=== PATIENT | male | born 1945 | race Hispanic/Latino ===

== ENCOUNTER → 2018-04-03 | Outpatient (CLI) | payer OTHER ==
[~2018-04-03] MED LIST: AMIO100T4 PO; ASPI-555 PO; GLIM1TAB2 PO; LISI-613 PO; METO-391 PO; RANO500T3 PO; ROSU10TA PO; TAMS0.4C32 PO; WARF2TAB9 PO
== END | disposition home or self-care (01) ==
LOC: SHCH 13:54
PROVIDERS: ATTEND Internal Medicine Cardiovascular Disease
DX: I25.10 Atherosclerotic heart disease of native coronary artery without angina pectoris (principal)
CPT/HCPCS: 93306

== ENCOUNTER → 2018-04-09 | Outpatient (CLI) | payer OTHER | END | disposition home or self-care (01) | LOC: SHCH 13:31 | PROVIDERS: ATTEND Internal Medicine Cardiovascular Disease | DX: I65.23 Occlusion and stenosis of bilateral carotid arteries (principal); I25.10 Atherosclerotic heart disease of native coronary artery without angina pectoris; I73.9 Peripheral vascular disease, unspecified; Z72.89 Other problems related to lifestyle | CPT/HCPCS: 93880; 93925 ==

== ENCOUNTER → 2019-04-09 | Outpatient (CLI) | payer OTHER ==
[~2019-04-09] MED LIST changes: -GLIM1TAB2 PO; +GLIM1TAB3 PO; -ROSU10TA PO; +ROSU10TA22 PO
== END | disposition home or self-care (01) ==
LOC: SHCH 12:47
PROVIDERS: ATTEND Internal Medicine Cardiovascular Disease
DX: I65.23 Occlusion and stenosis of bilateral carotid arteries (principal)
CPT/HCPCS: 93880

== ENCOUNTER → 2019-11-25 | Outpatient (CLI) | payer OTHER ==
[~2019-11-25] MED LIST changes: +GLIM1TAB18 PO; -GLIM1TAB3 PO
== END | disposition home or self-care (01) ==
LOC: SHCH 07:58
PROVIDERS: ATTEND Internal Medicine Cardiovascular Disease
DX: I25.10 Atherosclerotic heart disease of native coronary artery without angina pectoris (principal); I10 Essential (primary) hypertension
CPT/HCPCS: 93306; 93356; 93880

== ENCOUNTER → 2021-10-31 | Outpatient (CLI) | payer OTHER ==
[~2021-10-31] MED LIST changes: -ASPI-555 PO; +ASPI-556 PO; -LISI-613 PO; +LISI20TA24 PO
== END ==
LOC: SHCH 10:27
PROVIDERS: ATTEND Internal Medicine Cardiovascular Disease
DX: I48.0 Paroxysmal atrial fibrillation (principal); I10 Essential (primary) hypertension; I70.293 Other atherosclerosis of native arteries of extremities, bilateral legs; I65.23 Occlusion and stenosis of bilateral carotid arteries
CPT/HCPCS: 93880; 93925

== ENCOUNTER → 2021-11-02 | Outpatient (CLI) | payer OTHER | END | disposition home or self-care (01) | LOC: RAH 15:06 | PROVIDERS: ATTEND Internal Medicine Cardiovascular Disease | DX: I08.0 Rheumatic disorders of both mitral and aortic valves (principal); I48.0 Paroxysmal atrial fibrillation; I11.9 Hypertensive heart disease without heart failure; E78.5 Hyperlipidemia, unspecified; Z95.1 Presence of aortocoronary bypass graft | CPT/HCPCS: 93306 ==

== ENCOUNTER → 2021-12-08 | Outpatient (CLI) | payer OTHER ==
[~2021-12-08] MED LIST changes: +REGADENOSON 0.4 MG/5 ML PF SYG IVP SCH
== END | disposition home or self-care (01) ==
LOC: SHCH 08:27
PROVIDERS: ATTEND Internal Medicine Cardiovascular Disease
DX: I65.21 Occlusion and stenosis of right carotid artery (principal); I10 Essential (primary) hypertension
CPT/HCPCS: 78452; 93017; 96374; A9500 ×2; J2785

== ENCOUNTER → 2022-01-31 | Outpatient (CLI) | payer OTHER ==
[~2022-01-31] VITALS: Ht 175.3 cm; Wt 71.5 kg
[~2022-01-31] MED LIST changes: +0.9% NACL 500ML IV.SOLN 500 ML IV SCH; +DONE5TAB33 PO; +GLIM4TAB36 PO; +METO25TA6 PO; -REGADENOSON 0.4 MG/5 ML PF SYG IVP SCH; +SITA50TA PO
[2022-01-31 09:57] LABS: BASOPHILS % (AUTO) 0.5 % (0.0-5.0); EOSINOPHILS % (AUTO) 1.4 % (0.0-8.0); HEMATOCRIT 38.5 % (42-54); LYMPHOCYTES % (AUTO) 24.2 % (21.0-51.0); MEAN CORPUSCULAR HEMOGLOBIN 27.6 pg (27.0-33.0); MEAN CORPUSCULAR HGB CONC 30.9 g/dL (32.0-36.0); MEAN CORPUSCULAR VOLUME 89.3 fL (79-99); MONOCYTES % (AUTO) 8.9 % (3.0-13.0); NEUTROPHILS % (AUTO) 64.7 % (40.0-77.0); PLATELET COUNT (AUTO) 179 K/uL (130-400); RED BLOOD CELL COUNT(AUTO) 4.31 MIL/uL (4.50-6.20); RED CELL DISTRIBUTION WIDTH 15.6 % (11.0-15.5); WHITE BLOOD COUNT (AUTO) 5.7 K/uL (4.8-10.8)
[2022-01-31 10:16] LABS: INR 0.97 (0.85-1.15); PROTHROMBIN TIME 10.6 SEC (9.6-11.6)
[2022-01-31 10:17] LABS: PARTIAL THROMBOPLASTIN TIME 24.5 SEC (26.3-35.5)
[2022-01-31 10:21] LABS: CREATININE 2.2 mg/dL (0.5-1.5); POTASSIUM 5.2 mmol/L (3.5-5.1)
[2022-01-31 10:23] LABS: APPEARANCE,URINE Clear (CLEAR); BILIRUBIN,URINE Negative (NEGATIVE); COLOR,URINE Yellow (YELLOW); GLUCOSE, URINE (UA) Negative (NEGATIVE); KETONES,URINE Trace mg/dL (NEGATIVE); LEUKOCYTE ESTERASE ,URINE Trace (NEGATIVE); NITRATE,URINE Negative (NEGATIVE); OCCULT BLOOD,URINE Negative (NEGATIVE); PH,URINE 5.5 (5.0-8.0); PROTEIN,URINE POS 1+ mg/dL (NEGATIVE)
[2022-01-31 10:37] LABS: B-TYPE NATRIURETIC PEPTIDE 1400 pg/mL (0-100)
[2022-01-31 10:43] LABS: BACTERIA,URINE Rare /HPF (None Seen); RBC,URINE 0-1 /HPF (0-1); SQUAMOUS EPITHELIAL CELL,UR Rare /HPF (0-2); WBC,URINE 0-1 /HPF (0-1)
[2022-02-02 09:37] VITALS: BP 210/62
== END | disposition home or self-care (01) ==
LOC: EDSTATUS 08:00 → DAH 08:51
PROVIDERS: ATTEND Internal Medicine Cardiovascular Disease
DX: Z01.818 Encounter for other preprocedural examination (principal); I25.10 Atherosclerotic heart disease of native coronary artery without angina pectoris; Z79.01 Long term (current) use of anticoagulants
CPT/HCPCS: 36415; 71045; 80048; 81001; 83880; 85025; 85610; 85730; 93005

== ENCOUNTER → 2024-02-17 | Outpatient (CLI) | payer OTHER ==
[~2024-02-17] MED LIST changes: -0.9% NACL 500ML IV.SOLN 500 ML IV SCH; +AEC81 PO; -AMIO100T4 PO; +AMLO-257 PO; -ASPI-556 PO; +CHOL100046 PO; +CLOP75TA32 PO; +FERR-72 PO; +FOLI0.8T43 PO; -GLIM1TAB18 PO; -GLIM4TAB36 PO; -LISI20TA24 PO; -METO-391 PO; -METO25TA6 PO; +METO50TA18 PO; -RANO500T3 PO; -ROSU10TA22 PO; +ROSU5TAB43 PO; +SODI650T PO; -TAMS0.4C32 PO; -WARF2TAB9 PO
[2024-02-17 12:33] LABS: ALBUMIN 4.1 g/dL (3.5-5.0); BILIRUBIN,TOTAL 0.5 mg/dL (0.2-1.0); CREATININE 2.7 mg/dL (0.5-1.3); MAGNESIUM 1.7 mg/dL (1.80-2.40); POTASSIUM 4.1 mmol/L (3.5-5.1); TOTAL PROTEIN, SERUM 7.7 g/dL (6.0-8.3)
== END | disposition home or self-care (01) ==
LOC: LAB 10:07
PROVIDERS: ATTEND Internal Medicine Cardiovascular Disease
DX: I10 Essential (primary) hypertension (principal); E78.5 Hyperlipidemia, unspecified
CPT/HCPCS: 36415; 80053; 83735; 83880

== ENCOUNTER → 2024-03-03 | Outpatient (CLI) | payer OTHER ==
[2024-03-03 12:13] LABS: ALBUMIN 4.1 g/dL (3.5-5.0); BILIRUBIN,TOTAL 0.6 mg/dL (0.2-1.0); POTASSIUM 4.3 mmol/L (3.5-5.1); TOTAL PROTEIN, SERUM 7.4 g/dL (6.0-8.3)
== END | disposition home or self-care (01) ==
LOC: LAB 10:17
PROVIDERS: ATTEND Internal Medicine Cardiovascular Disease
DX: I10 Essential (primary) hypertension (principal); E78.2 Mixed hyperlipidemia
CPT/HCPCS: 36415; 80053

== ENCOUNTER 2024-04-21 16:44 | Inpatient (IN) | payer OTHER ==
[~2024-04-21] VITALS: Ht 177.8 cm; Wt 79.0 kg
[2024-04-21 18:02] LABS: BASOPHILS # (AUTO) 0.04 K/uL (0.00-0.20); BASOPHILS % (AUTO) 0.6 % (0.0-5.0); EOSINOPHILS # (AUTO) 0.03 K/uL (0.00-0.70); EOSINOPHILS % (AUTO) 0.5 % (0.0-8.0); HEMATOCRIT 36.3 % (42-54); IMMATURE GRANULOCYTE ABSOLUTE 0.02 K/uL (0-1); LYMPHOCYTES # (AUTO) 1.5 K/uL (1.0-4.8); LYMPHOCYTES % (AUTO) 22.7 % (21.0-51.0); MEAN CORPUSCULAR HEMOGLOBIN 30.7 pg (27.0-33.0); MEAN CORPUSCULAR HGB CONC 32.8 g/dL (32.0-36.0); MEAN CORPUSCULAR VOLUME 93.6 fL (79-99); MONOCYTES # (AUTO) 0.5 K/uL (0.1-1.0); MONOCYTES % (AUTO) 8.2 % (3.0-13.0); NEUTROPHILS # (AUTO) 4.5 K/uL (1.8-7.7); NEUTROPHILS % (AUTO) 67.7 % (40.0-77.0); PLATELET COUNT (AUTO) 222 K/uL (130-400); RED BLOOD CELL COUNT(AUTO) 3.88 MIL/uL (4.50-6.20); RED CELL DISTRIBUTION WIDTH 13.8 % (11.0-15.5); WHITE BLOOD COUNT (AUTO) 6.6 K/uL (4.8-10.8)
[2024-04-21 18:30] LABS: CREATININE 2.5 mg/dL (0.5-1.3)
[2024-04-21] MEDS: ondanSETRON 4MG INJ IVP ONE (19:08)
[2024-04-21] MEDS: morPHINE 2 MG SYG IVP ONE (19:08)
[2024-04-21] MEDS: LAbetaLOL 20MG SYG IV ONE (19:17)
[2024-04-21 19:21] LABS: ERYTHROCYTE SEDIMENTATION RATE 19 MM/HR (0-20)
[2024-04-21] MEDS ORDERED: VANCOMYCIN PROTOCOL PER PHARMACY IV SCH (21:00)
[2024-04-21] MEDS ORDERED: ALBUTEROL 0.083% 2.5 MG/3 ML INH IH PRN (21:00)
[2024-04-21] MEDS ORDERED: acetaMINOPHEN 325 MG TAB PO PRN (21:00)
[2024-04-21] MEDS: INSULIN humuLIN R 100 UNIT/ML 3ML SQ SCH (21:00)
[2024-04-21] MEDS ORDERED: ondanSETRON 4MG INJ IVP PRN (21:00)
[2024-04-21] MEDS ORDERED: acetaMINOPHEN 650 MG SUPPOSITORY RC PRN (21:00)
[2024-04-21] MEDS: ceFEPime HCL 1 GM VIAL IVPB SCH (21:17)
[2024-04-21] MEDS: LAbetaLOL 20MG SYG IV PRN (21:18)
[2024-04-21] MEDS: ZOSYN 3.375GM +NS 50ML IV SCH (21:38)
[2024-04-21] MEDS: VANCOMYCIN 1.5 GM/250 ML BAG 250 ML IV ONE (22:03)
[2024-04-21 23:10] VITALS: BP 194/47; PULSE 83; RESP 18; TEMP 97.7; O2SAT 100
[2024-04-22] VITALS (10 sets, daily range): BP systolic 142–188; BP diastolic 35–140; PULSE 62–85; RESP 17–20; TEMP 97.7–98.9; O2SAT 97–99
[2024-04-22] MEDS ORDERED: CILO100T3 PO (02:04)
[2024-04-22 05:11] LABS: BASOPHILS # (AUTO) 0.04 K/uL (0.00-0.20); BASOPHILS % (AUTO) 0.6 % (0.0-5.0); EOSINOPHILS # (AUTO) 0.04 K/uL (0.00-0.70); EOSINOPHILS % (AUTO) 0.6 % (0.0-8.0); HEMATOCRIT 33.2 % (42-54); IMMATURE GRANULOCYTE ABSOLUTE 0.02 K/uL (0-1); LYMPHOCYTES # (AUTO) 1.9 K/uL (1.0-4.8); LYMPHOCYTES % (AUTO) 29.5 % (21.0-51.0); MEAN CORPUSCULAR HEMOGLOBIN 30.7 pg (27.0-33.0); MEAN CORPUSCULAR HGB CONC 32.2 g/dL (32.0-36.0); MEAN CORPUSCULAR VOLUME 95.4 fL (79-99); MONOCYTES # (AUTO) 0.7 K/uL (0.1-1.0); NEUTROPHILS # (AUTO) 3.7 K/uL (1.8-7.7); PLATELET COUNT (AUTO) 177 K/uL (130-400); RED BLOOD CELL COUNT(AUTO) 3.48 MIL/uL (4.50-6.20); RED CELL DISTRIBUTION WIDTH 13.6 % (11.0-15.5); WHITE BLOOD COUNT (AUTO) 6.4 K/uL (4.8-10.8)
[2024-04-22 05:25] LABS: CREATININE 2.3 mg/dL (0.5-1.3); MAGNESIUM 1.7 mg/dL (1.80-2.40); PHOSPHORUS 3.8 mg/dL (2.5-4.9); POTASSIUM 3.3 mmol/L (3.5-5.1)
[2024-04-22] MEDS: PANTOPrazole 40 MG TAB DR PO SCH (10:25)
[2024-04-22] MEDS: ENOXAPARIN SODIUM 30 MG/0.3 ML SQ SCH (10:26)
[2024-04-22] MEDS: LINEZOLID 600 MG/ISO-OSM 300 ML IV SCH (15:45)
[2024-04-22] MEDS: PoTASSium chloRIDE 20MEQ ER 20 MEQ ERTAB PO ONE (18:32)
[2024-04-22] MEDS: MAGNESIUM 2GM PREMIX 50ML 50 ML IV ONE (18:32)
[2024-04-22] MEDS: SODIUM BICARBONATE 650 MG TAB PO SCH (19:44)
[2024-04-22] MEDS: metoPROLOL tartRATE 50 MG TAB PO SCH (19:44)
[2024-04-22] MEDS: atorVAStatin 20 MG TABLET PO SCH (19:44)
[2024-04-22] MEDS: CILOstazol 100 MG TAB PO SCH (19:44)
[2024-04-22] MEDS: HYDROcodone/APAP 5/325 1 TAB TABLET PO PRN (19:45)
[2024-04-22] MEDS ORDERED: VANCOMYCIN 750MG VIAL IVPB SCH (21:30)
[2024-04-22] MEDS: ceFEPime HCL 1 GM VIAL IVPB SCH (21:35)
[2024-04-23] VITALS (16 sets, daily range): BP systolic 116–206; BP diastolic 33–78; PULSE 64–98; RESP 16–20; TEMP 97.7–98.9; O2SAT 97–99
[2024-04-23 04:35] LABS: HEMATOCRIT 34.4 % (42-54); MEAN CORPUSCULAR HEMOGLOBIN 30.5 pg (27.0-33.0); MEAN CORPUSCULAR HGB CONC 31.7 g/dL (32.0-36.0); MEAN CORPUSCULAR VOLUME 96.4 fL (79-99); RED BLOOD CELL COUNT(AUTO) 3.57 MIL/uL (4.50-6.20); RED CELL DISTRIBUTION WIDTH 13.7 % (11.0-15.5); WHITE BLOOD COUNT (AUTO) 7.2 K/uL (4.8-10.8)
[2024-04-23 05:01] LABS: CREATININE 2.2 mg/dL (0.5-1.3); POTASSIUM 4.2 mmol/L (3.5-5.1)
[2024-04-23] MEDS: ASPIRIN 81 MG EC TAB PO SCH (07:32)
[2024-04-23] MEDS: cloPIDOgrel 75MG TAB PO SCH (07:33)
[2024-04-23] MEDS: FERROUS SULFATE 325 MG TABLET.DR PO SCH (09:00)
[2024-04-23] MEDS: Cholecalciferol (Vitamin D3) 25 MCG PO SCH (09:00)
[2024-04-23] MEDS: Vitamin B Complex/Vit C/Folic Acid PO SCH (09:00)
[2024-04-23] MEDS: doNEPEZil HCL 5 MG TAB PO SCH (09:00)
[2024-04-23] MEDS ORDERED: HEParin-NS 1,000 UNIT/500 ML 1,000 ML IV ONE (10:23)
[2024-04-23] MEDS ORDERED: IODIXANOL 320 MG/ML 100 ML VIAL ONE (10:23)
[2024-04-23] MEDS ORDERED: NITROGLYCERIN 50MG VIAL ONE ×2 (10:23→12:02)
[2024-04-23] MEDS ORDERED: HEParin 10,000 UNIT/10ML (1,000 UNIT/ML) VIAL ONE ×2 (10:23→12:24)
[2024-04-23] MEDS ORDERED: LIDOCAINE HCL 400MG/20ML VIAL ONE (10:23)
[2024-04-23] MEDS ORDERED: MIDAZOLAM HCL 1 MG/ML 2ML VIAL ONE ×2 (10:44→12:09)
[2024-04-23] MEDS ORDERED: FENTanyl CITRate PF 50 MCG/1 ML 2ML VIAL ONE (10:44)
[2024-04-23] MEDS ORDERED: niCARDIpine 25MG INJ IV ONE (12:03)
[2024-04-23] MEDS ORDERED: HEParin-NS 1,000 UNIT/500 ML 500 ML IV ONE (12:05)
[2024-04-23] MEDS ORDERED: LAbetaLOL 20MG SYG IV ONE ×2 (13:39→13:55)
[2024-04-23] MEDS ORDERED: cloNIDine HCL 0.1 MG TABLET PO PRN (15:00)
[2024-04-23] MEDS: hydrALAZine 20MG/ML VIAL ONE (15:02)
[2024-04-23] MEDS: hydrALAZine 20MG/ML VIAL IV ONE (15:05)
[2024-04-23] MEDS: 0.9%NACL 1000ML 1,000 ML IV SCH (15:34)
[2024-04-23] MEDS: hydrALAZine 25MG TABLET PO SCH (22:12)
[2024-04-24] VITALS (9 sets, daily range): BP systolic 113–153; BP diastolic 36–81; PULSE 82–93; RESP 17–20; TEMP 97.7–98.5; O2SAT 97–98
[2024-04-24 05:05] LABS: HEMATOCRIT 30.3 % (42-54); MEAN CORPUSCULAR HEMOGLOBIN 30.7 pg (27.0-33.0); MEAN CORPUSCULAR HGB CONC 32.7 g/dL (32.0-36.0); MEAN CORPUSCULAR VOLUME 94.1 fL (79-99); RED BLOOD CELL COUNT(AUTO) 3.22 MIL/uL (4.50-6.20); RED CELL DISTRIBUTION WIDTH 13.8 % (11.0-15.5); WHITE BLOOD COUNT (AUTO) 7.4 K/uL (4.8-10.8)
[2024-04-24 05:14] LABS: CREATININE 2.5 mg/dL (0.5-1.3); POTASSIUM 3.9 mmol/L (3.5-5.1)
[2024-04-24] MEDS: 0.9%NACL 1000ML 1,000 ML IV SCH (08:00)
[2024-04-24] MEDS: ASPIRIN 81MG CHEW TAB PO SCH (09:05)
[2024-04-24] MEDS: cloPIDOgrel 75MG TAB PO SCH (09:10)
[2024-04-24 12:45] LABS: ADD UA MICROSCOPIC YES
[2024-04-24 12:46] LABS: APPEARANCE,URINE CLEAR (CLEAR); BACTERIA,URINE RARE /HPF (None Seen); BILIRUBIN,URINE NEGATIVE (NEGATIVE); COLOR,URINE YELLOW (YELLOW); GLUCOSE, URINE (UA) 70 mg/dL (NEGATIVE); KETONES,URINE 10 mg/dL (NEGATIVE); LEUKOCYTE ESTERASE ,URINE NEGATIVE Leu/uL (NEGATIVE); MUCUS,URINE RARE LPF (None Seen); NITRATE,URINE NEGATIVE (NEGATIVE); PH,URINE 5.5 (5.0-8.0); PROTEIN,URINE 50 mg/dL (NEGATIVE); SQUAMOUS EPITHELIAL CELL,UR RARE /HPF (0-2); UROBILINOGEN,URINE 0.2 mg/dL (0.2-1.0)
[2024-04-25] VITALS (10 sets, daily range): BP systolic 108–170; BP diastolic 40–54; PULSE 79–94; RESP 18–20; TEMP 97.7–98.2; O2SAT 95–98
[2024-04-25 04:52] LABS: HEMATOCRIT 28.3 % (42-54); MEAN CORPUSCULAR HEMOGLOBIN 30.9 pg (27.0-33.0); MEAN CORPUSCULAR HGB CONC 32.9 g/dL (32.0-36.0); RED BLOOD CELL COUNT(AUTO) 3.01 MIL/uL (4.50-6.20); RED CELL DISTRIBUTION WIDTH 14.3 % (11.0-15.5); WHITE BLOOD COUNT (AUTO) 8.4 K/uL (4.8-10.8)
[2024-04-25 05:38] LABS: BILIRUBIN,TOTAL 0.6 mg/dL (0.2-1.0); PHOSPHORUS 2.6 mg/dL (2.5-4.9); POTASSIUM 3.7 mmol/L (3.5-5.1); URIC ACID 7.9 mg/dL (2.6-7.2)
[2024-04-25 05:40] LABS: % IRON SATURATION 13.9 % (30-44)
[2024-04-25] MEDS: Vitamin B Complex/Vit C/Folic Acid PO SCH (09:00)
[2024-04-25] MEDS: SOD FERRIC GLUC COMPLEX/SUC 125 MG in 0.9%NACL 100ML 100 ML IV SCH (12:35)
[2024-04-25] MEDS: EPOETIN ALFA-EPBX (NON-ESRD) 10,000 UNIT/ML VIAL SQ ONE (12:41)
[2024-04-26] VITALS (9 sets, daily range): BP systolic 137–150; BP diastolic 43–57; PULSE 78–91; RESP 18–19; TEMP 97.8–98.3; O2SAT 96–97
[2024-04-26 04:04] LABS: HEMATOCRIT 27.9 % (42-54); MEAN CORPUSCULAR HEMOGLOBIN 31.5 pg (27.0-33.0); MEAN CORPUSCULAR HGB CONC 33.3 g/dL (32.0-36.0); MEAN CORPUSCULAR VOLUME 94.6 fL (79-99); RED BLOOD CELL COUNT(AUTO) 2.95 MIL/uL (4.50-6.20); RED CELL DISTRIBUTION WIDTH 14.3 % (11.0-15.5); WHITE BLOOD COUNT (AUTO) 6.5 K/uL (4.8-10.8)
[2024-04-26 04:25] LABS: BILIRUBIN,TOTAL 0.5 mg/dL (0.2-1.0); MAGNESIUM 1.9 mg/dL (1.80-2.40); POTASSIUM 3.2 mmol/L (3.5-5.1); TOTAL PROTEIN, SERUM 6.1 g/dL (6.0-8.3)
[2024-04-26] MEDS: 0.9%NACL 1000ML 1,000 ML IV SCH ×2 (11:47→19:50)
[2024-04-27] VITALS (8 sets, daily range): BP systolic 99–142; BP diastolic 40–91; PULSE 56–116; RESP 16–18; TEMP 98.1–99.2; O2SAT 96
[2024-04-27 04:01] LABS: HEMATOCRIT 27.4 % (42-54); MEAN CORPUSCULAR HEMOGLOBIN 30.9 pg (27.0-33.0); MEAN CORPUSCULAR HGB CONC 32.8 g/dL (32.0-36.0); MEAN CORPUSCULAR VOLUME 94.2 fL (79-99); RED BLOOD CELL COUNT(AUTO) 2.91 MIL/uL (4.50-6.20); RED CELL DISTRIBUTION WIDTH 14.1 % (11.0-15.5); WHITE BLOOD COUNT (AUTO) 8.9 K/uL (4.8-10.8)
[2024-04-27 04:10] LABS: CREATININE 2.7 mg/dL (0.5-1.3); MAGNESIUM 1.7 mg/dL (1.80-2.40); POTASSIUM 3.6 mmol/L (3.5-5.1)
[2024-04-27] MEDS ORDERED: COMPOUND IV MISC 1 EACH IVSOLN MISC PRN (08:30)
[2024-04-27] MEDS: HONEY 1 APPL/ML TUBE TP SCH (09:53)
[2024-04-27] MEDS: MAGNESIUM 2GM PREMIX 50ML 50 ML IV PRN (18:43)
[2024-04-28 03:52] VITALS: BP 147/73; PULSE 104; RESP 18; TEMP 99.4
[2024-04-28 04:00] LABS: HEMATOCRIT 30.2 % (42-54); MEAN CORPUSCULAR HEMOGLOBIN 30.7 pg (27.0-33.0); MEAN CORPUSCULAR HGB CONC 32.8 g/dL (32.0-36.0); MEAN CORPUSCULAR VOLUME 93.8 fL (79-99); RED BLOOD CELL COUNT(AUTO) 3.22 MIL/uL (4.50-6.20); RED CELL DISTRIBUTION WIDTH 14.5 % (11.0-15.5); WHITE BLOOD COUNT (AUTO) 13.3 K/uL (4.8-10.8)
[2024-04-28 04:07] LABS: CREATININE 2.9 mg/dL (0.5-1.3); MAGNESIUM 2.1 mg/dL (1.80-2.40)
[2024-04-28 07:20] VITALS: BP 167/55; PULSE 102; RESP 18; TEMP 97.8
[2024-04-28 08:45] VITALS: O2SAT 92
[2024-04-28] MEDS ORDERED: ATOR20TA65 PO (11:35)
[2024-04-28 11:59] VITALS: BP 113/67; PULSE 98; RESP 20; TEMP 98.6
== END 2024-04-28 13:43 | DRG 271 ==
LOC: EDH 16:44 → OBSVTOIN 20:57 → EDHIP 20:57 → 4AH 21:39
PROVIDERS: ADMIT Internal Medicine Critical Care Medicine; ATTEND Internal Medicine Critical Care Medicine
PROC: 04CP3ZZ Extirpation of Matter from Right Anterior Tibial Artery, Percutaneous Approach (ICD-10-PCS; principal; 2024-04-23)
PROC: 047 Lower Arteries, Dilation (ICD-10-PCS; 2024-04-23)
PROC: B41F1ZZ Fluoroscopy of Right Lower Extremity Arteries using Low Osmolar Contrast (ICD-10-PCS; 2024-04-23)
PROC: 047N3ZZ Dilation of Left Popliteal Artery, Percutaneous Approach (ICD-10-PCS; 2024-04-23)
DX: E11.52 Type 2 diabetes mellitus with diabetic peripheral angiopathy with gangrene (principal); I13.0 Hypertensive heart and chronic kidney disease with heart failure and stage 1 through stage 4 chronic kidney disease, or unspecified chronic kidney disease; L03.115 Cellulitis of right lower limb; M86.171 Other acute osteomyelitis, right ankle and foot; I50.42 Chronic combined systolic (congestive) and diastolic (congestive) heart failure; I16.1 Hypertensive emergency; M86.671 Other chronic osteomyelitis, right ankle and foot; J98.11 Atelectasis; N18.4 Chronic kidney disease, stage 4 (severe); N17.9 Acute kidney failure, unspecified; E11.69 Type 2 diabetes mellitus with other specified complication; E11.22 Type 2 diabetes mellitus with diabetic chronic kidney disease; E11.621 Type 2 diabetes mellitus with foot ulcer; I25.10 Atherosclerotic heart disease of native coronary artery without angina pectoris; L97.519 Non-pressure chronic ulcer of other part of right foot with unspecified severity; D64.9 Anemia, unspecified; I25.5 Ischemic cardiomyopathy; E11.65 Type 2 diabetes mellitus with hyperglycemia; E78.00 Pure hypercholesterolemia, unspecified; I48.0 Paroxysmal atrial fibrillation; I65.21 Occlusion and stenosis of right carotid artery; Z79.02 Long term (current) use of antithrombotics/antiplatelets; Z79.82 Long term (current) use of aspirin; Z95.1 Presence of aortocoronary bypass graft; Z87.891 Personal history of nicotine dependence; Z79.899 Other long term (current) drug therapy
CPT/HCPCS: 36415; 37231; 71045; 73620; 73718; 75710; 76770; 80048; 80053; 81001; 82728; 82948; 83540; 83550; 83605; 83735; 83880; 84100; 84145; 84550; 85025; 85027; 85347; 85651; 93306; 93925; 93975; 94664; 96374; 96375; 99156; 99157; C1724; C1769; C1893; C1894; G0378; J0360; J0692; J1644; J1650; J1815; J2020; J2250; J2270; J2405; J2543; J2916; J3010; J3475; J3490; Q9967; C1725; C1760; C1874; C1887; J3370; Q5106

== ENCOUNTER → 2024-05-06 | Outpatient (CLI) | payer OTHER ==
[~2024-05-06] MED LIST changes: -AMLO-257 PO; +ATOR20TA65 PO; -ROSU5TAB43 PO
== END | disposition home or self-care (01) ==
LOC: SHCH 07:42
PROVIDERS: ATTEND Internal Medicine Cardiovascular Disease
DX: I65.21 Occlusion and stenosis of right carotid artery (principal); I73.9 Peripheral vascular disease, unspecified; I10 Essential (primary) hypertension; E78.2 Mixed hyperlipidemia
CPT/HCPCS: 93880